=== PATIENT | female | born 1955 | race Caucasian/White ===

== ENCOUNTER 2024-04-20 00:30 | Inpatient (IN) | payer OTHER ==
[~2024-04-20] VITALS: Ht 152.4 cm; Wt 100.5 kg
[2024-04-20 00:55] VITALS: PULSE 111; RESP 21; O2SAT 94
[2024-04-20] MEDS: SODIUM CHLORIDE 0.9% 2,000 ML IV ONE (01:24)
[2024-04-20] MEDS: IBUPROFEN 800 MG TAB PO ONE (01:25)
[2024-04-20] MEDS: ACETAMINOPHEN 500 MG TAB PO ONE (01:26)
[2024-04-20 01:33] LABS: Basophils # (auto) 0 10 ^3/uL (0-0.2); Basophils % (auto) 0.3 % (0.0-2.0); Eosinophils # (auto) 0 10 ^3/uL (0-0.8); Eosinophils % (auto) 0.1 % (0.0-7.0); Hematocrit 40.6 % (36.0-46.0); Hemoglobin 13.7 g/dL (12.2-16.2); Lymphocytes # (auto) 1.1 10 ^3/uL (0.4-5.4); Mean Corpuscular Hemoglobin 29.9 pg (28.0-32.0); Mean Corpuscular Hgb Conc. 33.7 g/dL (32.0-36.0); Mean Corpuscular Volume 88.8 fL (80.0-100.0); Monocytes # (auto) 1.1 10 ^3/uL (0-1.3); Monocytes % (auto) 6.4 % (0.0-12.0); Neutrophils # (auto) 14.2 10 ^3/uL (1.6-8.6); Neutrophils % (auto) 86.2 % (37.0-80.0); Platelet Count (auto) 196 10^3/uL (140-450); Red Blood Cells 4.57 10^6/uL (4.0-5.20); Red Cell Distribution Width 13.9 % (11.8-14.3); White Blood Cell 16.4 10^3/uL (4.4-10.8)
[2024-04-20 01:44] LABS: Anion Gap 8 (5-15); Carbon Dioxide 24 mmol/L (20-31); Chloride 106 mmol/L (98-107); Potassium 3.3 mmol/L (3.5-5.1); Sodium 138 mmol/L (136-145)
[2024-04-20 01:50] LABS: BUN/Creatinine Ratio 10.8 (10.0-20.0); Blood Urea Nitrogen 9 mg/dL (9-23); Glucose 142 mg/dL (74-106)
--- NOTE | 2024-04-20 02:37 | ED.PDOC ---
History of Present Illness HPI Comments 68-year-old female brought in by EMS presents with a chief complaint of fever, dysuria, and headache. Patient states that she has been feeling unwell since beginning yesterday. Patient is mostly complaining of headache, but also states that she is having dysuria pain as well. Patient is febrile upon arrival to ER. Denies sore throat, cough, abd pain, diarrhea. Has had nausea/vomiting. No other symptoms or modifying factors present at this time. 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 Hx Family History Family History: Reviewed,noncontributory to illness Social History Smoker: Non-Smoker Alcohol: Denies ETOH Use Drugs: Denies Drug Use Lives In: Home Constitutional: reports: fever; denies: chills, diaphoresis, fatigue, malaise, sweats, weakness, others EENTM: denies: blurred vision, double vision, ear bleeding, ear discharge, ear drainage, ear pain, ear ringing, eye pain, eye redness, hearing loss, mouth pain, mouth swelling, nasal discharge, nose bleeding, nose congestion, nose pain, photophobia, tearing, throat pain, throat swelling, voice changes, others Respiratory: denies: cough, hemoptysis, orthopnea, SOB at rest, shortness of breath, SOB with excertion, stridor, wheezing, others Cardiovascular: denies: chest pain, dizzy spells, diaphoresis, Dyspnea on exertion, edema, irregular heart beat, left arm pain, lightheadedness, palpitations, PND, syncope, others Gastrointestinal: denies: abdomen distended, abdominal pain, blood streaked bowels, constipated, diarrhea, dysphagia, difficulty swallowing, hematemesis, melena, nausea, poor appetite, poor fluid intake, rectal bleeding, rectal pain, vomiting, others Genitourinary: reports: dysuria; denies: abnormal vagina bleeding, burning, dyspareunia, flank pain, frequency, hematuria, incontinence, pain, , vagina discharge, urgency, others Neurological: reports: headache; denies: dizziness, fainting, left sided numbness, left sided weakness, numbness, paresthesia, pre-existing deficit, right sided numbness, right sided weakness, seizure, speech problems, tingling, tremors, weakness, others Musculoskeletal: denies: back pain, gout, joint pain, joint swelling, muscle pain, muscle stiffness, neck pain, others Integumetry: denies: bruises, change in color, change in hair/nails, dryness, laceration, lesions, lumps, rash, wounds, others Allergic/Immunocompromised: denies: Difficulty Healing, Frequent Infections, Hives, Itching, others Hematologic/Lymphatic: denies: anemia, blood clots, easy bleeding, easy bruising, swollen glands, others Endocrine: denies: excessive hunger, excessive sweating, excessive thirst, excessive urination, flushing, intolerance to cold, intolerance to heat, unexplained weight gain, unexplained weight loss, others Psychiatric: denies: anxiety, bipolar disorder, depression, hopeless, panic disorder, schizophrenia, sleepless, suicidal, others All Other Systems: Reviewed and Negative Physical Exam General Appearance: No Apparent Distress, Obese HEENT: Normal ENT Inspection Neck: Full Range of Motion, Non-Tender, Normal Inspection, Supple Respiratory: Lungs Clear, No Accessory Muscle Use, No Respiratory Distress, Normal Breath Sounds Cardiovascular: No Edema, No JVD, Regular Rate/Rhythm Breast Exam: Deferred Gastrointestinal: Non Tender, Soft Genitalia: Deferred Pelvic: Deferred Rectal: Deferred Extremities: Normal inspection, Normal range of motion, Non-tender, No pedal edema Neurologic: Alert, No Motor Deficits, Normal Affect, Normal Mood, No Sensory Deficits Cerebellar Function: NOT DONE Reflexes: NOT DONE Skin: Dry, Normal Color, Warm Lymphatic: NOT DONE Was a procedure done? Was a procedure done?: No EKG EKG : Comments Sinus tach, rate 109, normal intervals, normal axis, normal QRS complex, no ST/T changes. Differential Dx Considerations may include: UTI, pyelonephritis, dehydration, electrolyte imbalance, sepsis, arrhythmia, pneumonia, viral syndrome, among others X-Ray, Labs, Meds, VS Vital Signs Date Time Temp Pulse Resp B/P (MAP) Pulse Ox O2 Delivery O2 Flow Rate FiO2 04/20/24 01:26 100.9 04/20/24 01:25 100.9 04/20/24 01:03 109 04/20/24 01:00 99.7 111 21 108/51 (70) 94 99.7 04/20/24 00:30 100.9 122 20 133/76 (95) 95 Lab Test 04/20/24 02:43 04/20/24 02:35 04/20/24 02:15 04/20/24 01:15 Range/Units Urine Color Pending Urine Clarity Pending Urine pH Pending Urine Specific [place] Pending Urine Protein Pending Urine Ketones Pending Urine Blood Pending Urine Nitrite Pending Urine Bilirubin Pending Urine Urobilinogen Pending Urine Leukocyte Esterase Pending Urine RBC Pending Urine WBC Pending Urine Squamous Epithelial Cells Pending Urine Bacteria Pending Urine Glucose Pending Influenza Type A Antigen Pending Influenza Type B Antigen Pending SARS-CoV-2 Antigen (Rapid) Pending Troponin I High Sensitivity 10 8 </=34 ng/L White Blood Count 16.4 H 4.4-10.8 10^3/uL Red Blood Count 4.57 4.0-5.20 10^6/uL Hemoglobin 13.7 12.2-16.2 g/dL Hematocrit 40.6 36.0-46.0 % Mean Corpuscular Volume 88.8 80.0-100.0 fL Mean Corpuscular Hemoglobin 29.9 28.0-32.0 pg Mean Corpuscular Hemoglobin Concent 33.7 32.0-36.0 g/dL Red Cell Distribution Width 13.9 11.8-14.3 % Platelet Count 196 140-450 10^3/uL Mean Platelet Volume 8.8 6.9-10.8 fL Neutrophils (%) (Auto) 86.2 H 37.0-80.0 % Lymphocytes (%) (Auto) 7.0 L 10.0-50.0 % Monocytes (%) (Auto) 6.4 0.0-12.0 % Eosinophils (%) (Auto) 0.1 0.0-7.0 % Basophils (%) (Auto) 0.3 0.0-2.0 % Neutrophils # (Auto) 14.2 H 1.6-8.6 10 ^3/uL Lymphocytes # (Auto) 1.1 0.4-5.4 10 ^3/uL Monocytes # (Auto) 1.1 0-1.3 10 ^3/uL Eosinophils # (Auto) 0 0-0.8 10 ^3/uL Basophils # (Auto) 0 0-0.2 10 ^3/uL Nucleated Red Blood Cells 0.0 % Sodium Level 138 136-145 mmol/L Potassium Level 3.3 L 3.5-5.1 mmol/L Chloride Level 106 98-107 mmol/L Carbon Dioxide Level 24 20-31 mmol/L Anion Gap 8 5-15 Blood Urea Nitrogen 9 9-23 mg/dL Creatinine 0.83 0.550-1.02 mg/dL Glomerular Filtration Rate Calc 78 >90 mL/min BUN/Creatinine Ratio 10.8 10.0-20.0 Serum Glucose 142 H 74-106 mg/dL Lactic Acid Level 1.2 0.4-2.0 mmol/L Calcium Level 9.0 8.7-10.4 mg/dL B-Type Natriuretic Peptide 31.51 0-100 pg/mL Current Medications Medications (Trade) Dose Ordered Sig/Yoly Route Start Time Stop Time Status Last Admin Sodium Chloride 2,000 ml @ 1,000 mls/hr Q2H ONCE IV 04/20/24 01:15 04/20/24 03:14 04/20/24 01:24 Acetaminophen (Tylenol Tablet) 1,000 mg ONCE ONCE PO 04/20/24 01:15 04/20/24 01:16 DC 04/20/24 01:26 Ibuprofen (Motrin Tablet) 800 mg ONCE ONCE PO 04/20/24 01:15 04/20/24 01:16 DC 04/20/24 01:25 X-Ray, Labs, Meds, VS Comment 68-year-old female with a history of hypertension and diabetes brought in by EMS for evaluation of headache, malaise, dysuria, nausea and vomiting Vitals remarkable for temperature 100.9, heart rate 122 Exam remarkable for tachycardia EKG sinus tach, no ST/T changes Chest x-ray independently interpreted by me: Cardiac silhouette appears enlarged, bilateral patchy increased interstitial markings, right greater than left which may represent infiltrates, no definite effusion, normal mediastinal width, grossly normal bony thorax, no free air, no pneumothorax. CBC remarkable for WBC 16.4, left shift Basic metabolic panel remarkable for potassium 3.3 Lactate, BNP and 2 serial troponins unremarkable for any abnormality of acute significance UA, influenza and COVID pending Patient treated with the following in the ED: 1 L 0.9 normal saline IV bolus, Levaquin 750 mg IV , Tylenol 1 g p.o., ibuprofen 800 mg p.o. On re-evaluation, patient states headache has improved, tachycardia has resolved, and other vitals are stable. Plan is to admit the patient for IV antibiotics. Time of 1ST Reevaluation: 02:56 Reevaluation 1ST: Unchanged Time of 2ND Reevaluation: 03:07 Reevaluation 2ND: Improved Patient Education/Counseling: Diagnosis, Treatment, Prognosis Family Education/Counseling: Diagnosis, Treatment, Prognosis Departure 1 Departure Time of Disposition: 03:07 Impression: Primary Impression: UTI (urinary tract infection) Qualified Codes: N39.0 - Urinary tract infection, site not specified Additional Impression: Pneumonia Qualified Codes: J18.9 - Pneumonia, unspecified organism Disposition: ADMITTED INPATIENT Admit to: Med Surg Condition: Guarded Critical Care Note Critical Care Time?: No Stability Stability form required: No Heart Score Heart Score: Heart Score Response (Comments) Value History N/A 0 EKG N/A 0 Age N/A 0 Risk Factors N/A 0 Troponin N/A 0 Total 0 I personally scribed for APPLE HERMAN MD ([email or web address]) on 04/20/24 at 02:37. Electronically submitted by Devang Tucker ([email or web address]). APPLE HERMAN MD Apr 20, 2024 02:37
[2024-04-20 03:04] LABS: Urine Bacteria MOD /hpf (None Seen); Urine Blood 2+ /uL (Negative); Urine Clarity Turbid (Clear); Urine Color Light-Orange (Yellow); Urine Protein, UAD 1+ (Negative); Urine Specific Gravity 1.015 (1.001-1.035); Urine Urobilinogen Normal (Negative); Urine WBC 524 /hpf (0 - 5); Urine WBC Clumps PRESENT /hpf (None Seen)
[2024-04-20 03:20] LABS: COVID19 ANTIGEN SOFIA FIA NEGATIVE (NEGATIVE); Rapid Influenza A Negative (Negative); Rapid Influenza B Negative (Negative)
[2024-04-20] MEDS: levoFLOXacin 750MG 150 ML IV ONE (03:35)
[2024-04-20] MEDS: POTASSIUM CHL 20 Meq TABLET PO ONE (03:43)
--- NOTE | 2024-04-20 04:03 | DVH ---
Examination: CXRP Clinical Indication: fever Comparison: None. Technique: Frontal radiograph of the chest was obtained. Findings: Limited evaluation, due to mid-expiratory radiograph. Lungs are clear and well expanded, with no pulmonary infiltrate or pleural effusion. There is no pneumothorax. Cardiac size cannot be commented upon, due to mid-expiratory phase of the radiograph. No acute osseous abnormality is seen. Impression: 1. Limited evaluation due to mid-expiratory radiograph. 2. No acute cardiopulmonary disease is seen. Electronically Signed 04/20/2024 03:54 Juan Luis Oliver
[2024-04-20] MEDS ORDERED: DEXTROSE (50%) 50ML SYRG IV PRN (06:15)
[2024-04-20] MEDS ORDERED: ONDANSETRON HCL 4 MG/2 ML VIAL IV PRN (06:15)
[2024-04-20] MEDS: InsuLIN REG 1unit/0.01ml Soln (100units/ml) SC SCH (06:49)
[2024-04-20] MEDS: ACCU-CHEK COMFORT CURVE STRIP VI SCH (06:49)
--- NOTE | 2024-04-20 06:56 | DVHHP2 ---
History of Present Illness Reason for Visit: Generalized weakness History of Present Illness 68-year-old female presents for evaluation of generalized weakness with associated dysuria and fever. Patient reports symptoms have been ongoing for the past two days. Denies abdominal pain or nausea. No cardiac or respiratory symptoms. Past Medical History Hypertension diabetes mellitus Past Surgical History Hernia repair Family History Noncontributory Smoke: No ALCOHOL: none Drugs: None Lives: with Family Review of Systems Review of Systems Review of systems are currently negative otherwise addressed in HPI. Allergies: Coded Allergies: Penicillins (Verified Allergy, Unknown, 04/20/24) Medications Current Medications Medications Dose Ordered Sig/Yoly Route Start Time Stop Time Status Last Admin Dose Admin Levofloxacin/ Dextrose 100 ml @ 100 mls/hr DAILY IV 04/21/24 10:00 Diagnostic Test (Pha) 1 strip ACHS 04/20/24 07:00 04/20/24 06:49 1 STRIP Insulin Human Regular ACHS SC 04/20/24 07:00 Dextrose 50 ml UD PRN IV 04/20/24 06:15 Ondansetron HCl 4 mg Q4HP PRN IV 04/20/24 06:15 Acetaminophen 650 mg Q6HP PRN PO 04/20/24 06:15 Exam Vital Signs Vital Signs Date Time Temp Pulse Resp B/P (MAP) Pulse Ox O2 Delivery O2 Flow Rate FiO2 04/20/24 06:00 72 15 91/44 (60) 96 04/20/24 03:00 98.3 04/20/24 00:55 Room Air* 0 21 Exam Gen: 68-year-old female in mild distress Skin: Warm, dry, normal color and texture, no rash. HEENT: Normocephalic atraumatic, mucous membranes moist and pink. Neck: Cervical and supraclavicular nodes normal without enlargement, trachea is midline, thyroid gland is normal without masses. Pulmonary: Clear to auscultation and percussion bilaterally. Cardiac: Regular rate and rhythm. No murmur Abdomen: Soft, nontender, nondistended, bowel sounds present all 4 quadrants, no guarding, no rigidity, no organomegaly. Extremities: No cyanosis, clubbing, no edema Neuro: Cranial nerves II through XII grossly intact, normal affect and speech, no focal motor deficits. Labs/Xrays ORDERING PHYSICIAN: APPLE HERMAN MD PROCEDURE(s): CXRP - CHEST PORTABLE REASON: fever ORDER NUMBER(s): [id number], ACCESSION NUMBER(s): [id number] Examination: CXRP Clinical Indication: fever Comparison: None. Technique: Frontal radiograph of the chest was obtained. Findings: Limited evaluation, due to mid-expiratory radiograph. Lungs are clear and well expanded, with no pulmonary infiltrate or pleural effusion. There is no pneumothorax. Cardiac size cannot be commented upon, due to mid-expiratory phase of the radiograph. No acute osseous abnormality is seen. Impression: 1. Limited evaluation due to mid-expiratory radiograph. 2. No acute cardiopulmonary disease is seen. Electronically Signed 04/20/2024 03:54 Juan Luis Oliver Labs Test 04/20/24 04:45 04/20/24 02:43 04/20/24 02:35 04/20/24 01:15 Range/Units Troponin I High Sensitivity 10 </=34 ng/L Urine Color Light-orange Yellow Urine Clarity Turbid H Clear Urine pH 6.0 5.0-9.0 Urine Specific [place] 1.015 1.001-1.035 Urine Protein 1+ H Negative Urine Ketones 1+ H Negative Urine Blood 2+ H Negative /uL Urine Nitrite 2+ H Negative Urine Bilirubin Negative Negative Urine Urobilinogen Normal Negative mg/dL Urine Leukocyte Esterase 3+ Negative /uL Urine RBC 11 0 - 4 /hpf Urine WBC 524 0 - 5 /hpf Urine WBC Clumps Present None Seen /hpf Urine Squamous Epithelial Cells Few <5 /hpf Urine Bacteria Mod H None Seen /hpf Urine Glucose Normal Normal mg/dL Influenza Type A Antigen Negative Negative Influenza Type B Antigen Negative Negative SARS-CoV-2 Antigen (Rapid) Negative NEGATIVE White Blood Count 16.4 H 4.4-10.8 10^3/uL Red Blood Count 4.57 4.0-5.20 10^6/uL Hemoglobin 13.7 12.2-16.2 g/dL Hematocrit 40.6 36.0-46.0 % Mean Corpuscular Volume 88.8 80.0-100.0 fL Mean Corpuscular Hemoglobin 29.9 28.0-32.0 pg Mean Corpuscular Hemoglobin Concent 33.7 32.0-36.0 g/dL Red Cell Distribution Width 13.9 11.8-14.3 % Platelet Count 196 140-450 10^3/uL Mean Platelet Volume 8.8 6.9-10.8 fL Neutrophils (%) (Auto) 86.2 H 37.0-80.0 % Lymphocytes (%) (Auto) 7.0 L 10.0-50.0 % Monocytes (%) (Auto) 6.4 0.0-12.0 % Eosinophils (%) (Auto) 0.1 0.0-7.0 % Basophils (%) (Auto) 0.3 0.0-2.0 % Neutrophils # (Auto) 14.2 H 1.6-8.6 10 ^3/uL Lymphocytes # (Auto) 1.1 0.4-5.4 10 ^3/uL Monocytes # (Auto) 1.1 0-1.3 10 ^3/uL Eosinophils # (Auto) 0 0-0.8 10 ^3/uL Basophils # (Auto) 0 0-0.2 10 ^3/uL Nucleated Red Blood Cells 0.0 % Sodium Level 138 136-145 mmol/L Potassium Level 3.3 L 3.5-5.1 mmol/L Chloride Level 106 98-107 mmol/L Carbon Dioxide Level 24 20-31 mmol/L Anion Gap 8 5-15 Blood Urea Nitrogen 9 9-23 mg/dL Creatinine 0.83 0.550-1.02 mg/dL Glomerular Filtration Rate Calc 78 >90 mL/min BUN/Creatinine Ratio 10.8 10.0-20.0 Serum Glucose 142 H 74-106 mg/dL Lactic Acid Level 1.2 0.4-2.0 mmol/L Calcium Level 9.0 8.7-10.4 mg/dL B-Type Natriuretic Peptide 31.51 0-100 pg/mL Assessment/Plan Assessment/Plan Assessment Acute cystitis Diabetes mellitus Hypokalemia Sirs Plan S Admit the patient to [facility] to the hospitalist [place] Resume home medications Replete electrolytes Continue treatment per orders. Plan discussed with: Patient [facility] Procedure Category Date Status Time Consistent DIET 04/20/24 Transmitted Carb(Ccho)Diabetes Breakfast Urine Bacterial ISABELA 04/20/24 In Process Culture 06:06 Glucose Blood PHA 04/20/24 In Process (Accu-Chek Comfort 07:00 Insulin R (Human) PHA 04/20/24 In Process (Insulin R) 07:00 Dextrose 50% Syringe PHA 04/20/24 In Process 06:15 Admit ADMIT 04/20/24 Transmitted 06:06 Ondansetron Hcl PHA 04/20/24 In Process (Zofran) 06:15 Complete Blood Count LAB 04/21/24 Verified 04:00 Cardiac DIET 04/20/24 Transmitted Diet-2gna,Lofat,Lochol Breakfast Condition: Stable RONNY 04/20/24 In Process 06:06 Acetaminophen Tablet PHA 04/20/24 In Process (Tylenol Tablet) 06:15 Bedrest With Bathroom [facility] 04/20/24 In Process Privileg 06:06 Basic Metabolic Panel LAB 04/21/24 Verified 04:00 Levofloxacin 500mg PHA 04/21/24 In Process (Levaquin 500mg/ 100m 10:00 Albumin 5% (Albutein) PHA 04/20/24 Logged 07:00 Date of Service: Apr 20, 2024 Billing Provider: FELICITA ESTES Common Visit Codes: [id number] INP/OBS CARE (MOD) FELICITA ESTES Apr 20, 2024 06:56
[2024-04-20] MEDS: ALBUMIN 5% 250 ML IV ONE (07:08)
--- NOTE | 2024-04-20 08:16 | ECG ---
[facility] Test Date: 2024-04-20 Test Time: 01:03:27 Pat Name: BROCK ZELAYA Department: ED Room: 0276 Gender: F Etl Software Engineer: : [id number] Requested By: APPLE HERNANDEZ Order Number: [id number] Reading MD: Zane Victor Measurements Intervals [place] Rate: 109 P: 11 NV: 136 QRS: 40 QRSD: 94 T: 14 QT: 343 QTc: 463 Interpretive Statements Sinus tachycardia Electronically Signed On 04-30-2024 12:46:20 PST by Zane Victor Please click the below link to view image of tracing.
[2024-04-20 09:56] VITALS: PULSE 72; RESP 22; O2SAT 97
[2024-04-20] MEDS ORDERED: LOSA-534 PO (10:47)
[2024-04-20] MEDS ORDERED: METF-370 PO (10:47)
[2024-04-20] MEDS ORDERED: SEMA2INJ3 SC (10:47)
[2024-04-20] MEDS: ACETAMINOPHEN 325 MG TAB PO PRN (11:38)
[2024-04-20 12:42] VITALS: BP 115/97; PULSE 92; RESP 18; TEMP 100.1; O2SAT 94
--- NOTE | 2024-04-20 13:56 | DVHPN2 ---
Subjective Patient continues to report having generalized weakness, fevers Reviewed: Care Plan, H&P, Labs, Medications Changes from previous H/P or p: No Changes General: Per HPI Objective Vitals Vital Signs Date Time Temp Pulse Resp B/P (MAP) Pulse Ox O2 Delivery O2 Flow Rate FiO2 04/20/24 12:42 100.1 92 18 115/97 (103) 94 100.1 04/20/24 09:56 Room Air* 0 21 Intake/Output Intake and Output 04/20/24 07:00 Intake Total 1150 ml Balance 1150 ml Intake IV Total 1150 ml General Appearance: Alert, Oriented X3, Cooperative, No acute distress HEENT: Atraumatic, PERRLA Cardiovascular: Normal S1, Normal S2 Genitourinary: No Apparent Abnormalities Musculoskeletal: Normal sensory function, Normal motor function Neuro: Normal gait, Normal speech, Strength at 5/5 X4 ext Skin: Dry, Intact Psych/Mental Status: Mental status NL, Mood NL Medications Current Medications Medications Dose Ordered Sig/Yoly Route Start Time Stop Time Status Last Admin Dose Admin Levofloxacin/ Dextrose 100 ml @ 100 mls/hr DAILY IV 04/21/24 10:00 Diagnostic Test (Pha) 1 strip ACHS 04/20/24 07:00 04/20/24 06:49 1 STRIP Insulin Human Regular ACHS SC 04/20/24 07:00 Dextrose 50 ml UD PRN IV 04/20/24 06:15 Ondansetron HCl 4 mg Q4HP PRN IV 04/20/24 06:15 Acetaminophen 650 mg Q6HP PRN PO 04/20/24 06:15 04/20/24 11:38 650 MG Laboratory Results Laboratory Tests 04/20/24 01:15 Chemistry Test 04/20/24 01:15 Calcium Level 9.0 mg/dL (8.7-10.4) Cardiac Markers Test 04/20/24 01:15 B-Type Natriuretic Peptide 31.51 pg/mL (0-100) Urinalysis Test 04/20/24 02:43 Urine Color Light-orange (Yellow) Urine Clarity Turbid (Clear) H Urine pH 6.0 (5.0-9.0) Urine Specific [place] 1.015 (1.001-1.035) Urine Protein 1+ (Negative) H Urine Ketones 1+ (Negative) H Urine Blood 2+ /uL (Negative) H Urine Nitrite 2+ (Negative) H Urine Bilirubin Negative (Negative) Urine Urobilinogen Normal mg/dL (Negative) Urine Leukocyte Esterase 3+ /uL (Negative) Urine RBC 11 /hpf (0 - 4) Urine WBC 524 /hpf (0 - 5) Urine WBC Clumps Present /hpf (None Seen) Urine Squamous Epithelial Cells Few /hpf (<5) Urine Bacteria Mod /hpf (None Seen) H Urine Glucose Normal mg/dL (Normal) Labs and/or images reviewed: Labs reviewed by me, Image(s) reviewed by me Assessment/Plan Assessment/Plan Impression: -sepsis -complicated cystitis -obesity -rule out nephrolithiasis -diabetes mellitus -primary hypertension Plan: -renal ultrasound -antibiotic therapy: Levaquin -regular insulin sliding scale -check A1c -hold antihypertensives given borderline blood pressure -continue IV hydration -repeat labs in a.m. Total time spent with patient discussing and formulating plan of care: 35 minutes. This medical document was created using an electronic medical record system with [employer] dictation system. Although this document has been carefully reviewed, there may still be some phonetic and typographical errors. These areas are purely typographical due to imperfections of the software programs, and do not reflect any compromise in the patient's medical care. Plan discussed with: Patient, Son, Other (RN) My Orders Orders - CHASTITY PAYNE NP Procedure Category Date Status Time Kidney US 04/20/24 Verified 13:52 NS PHA 04/20/24 Verified 14:00 Blood Culture ISABELA 04/20/24 Verified 13:52 Hemoglobin A1c LAB 04/21/24 Verified 04:00 Date of Service: Apr 20, 2024 Billing Provider: CHASTITY PAYNE NP Common Visit Codes: [id number] INP/OBS CARE(HIGH) CHASTITY PAYNE NP Apr 20, 2024 13:56
--- NOTE | 2024-04-20 14:47 | DVH ---
INDICATION: 68 years old, Female; Rule out nephrolithiasis. Complicated cystitis with sepsis. TECHNIQUE: Multiple real-time sonographic images of the kidneys and bladder were obtained. COMPARISON: None FINDINGS: The right kidney measures 13 cm in length, which is normal in size. There is normal echogenicity of t he right kidney. No hydronephrosis. The left kidney measures 11 cm in length, which is normal in size. There is normal echogenicity of th e left kidney. No hydronephrosis. No large intraluminal masses are seen in the bladder. IMPRESSION: 1. Normal sonographic appearance of the kidneys. No hydronephrosis.
[2024-04-20 16:56] VITALS: BP 107/59; PULSE 112; RESP 17; TEMP 99.2; O2SAT 97
[2024-04-20] MEDS: INFLUENZA TRIVALENT 2024-2025 0.5 ML INJ IM ONE (17:52)
[2024-04-20 20:00] VITALS: O2SAT 97
[2024-04-20 21:00] VITALS: BP 82/30; PULSE 78; RESP 17; TEMP 98.3; O2SAT 100
[2024-04-20] MEDS: SODIUM CHLORIDE 0.9% 1,000 ML IV ONE (22:40)
[2024-04-21] VITALS (8 sets, daily range): BP systolic 78–123; BP diastolic 39–64; PULSE 66–93; RESP 16–19; TEMP 97.9–99.9; O2SAT 94–99
[2024-04-21 06:41] LABS: Basophils # (auto) 0 10 ^3/uL (0-0.2); Basophils % (auto) 0.1 % (0.0-2.0); Chloride 112 mmol/L (98-107); Eosinophils # (auto) 0 10 ^3/uL (0-0.8); Eosinophils % (auto) 0.2 % (0.0-7.0); Hematocrit 35.7 % (36.0-46.0); Hemoglobin 11.6 g/dL (12.2-16.2); Lymphocytes # (auto) 1.9 10 ^3/uL (0.4-5.4); Lymphocytes % (auto) 12.7 % (10.0-50.0); Mean Corpuscular Hemoglobin 29.2 pg (28.0-32.0); Mean Corpuscular Hgb Conc. 32.4 g/dL (32.0-36.0); Mean Corpuscular Volume 90.2 fL (80.0-100.0); Monocytes % (auto) 6.9 % (0.0-12.0); Neutrophils # (auto) 12.1 10 ^3/uL (1.6-8.6); Neutrophils % (auto) 80.1 % (37.0-80.0); Platelet Count (auto) 146 10^3/uL (140-450); Potassium 3.9 mmol/L (3.5-5.1); Red Blood Cells 3.95 10^6/uL (4.0-5.20); Red Cell Distribution Width 14.2 % (11.8-14.3); Sodium 141 mmol/L (136-145); White Blood Cell 15.2 10^3/uL (4.4-10.8)
[2024-04-21 06:42] LABS: Anion Gap 5 (5-15); Carbon Dioxide 24 mmol/L (20-31)
[2024-04-21 06:43] LABS: Calcium 8.4 mg/dL (8.7-10.4)
[2024-04-21 06:48] LABS: BUN/Creatinine Ratio 14.1 (10.0-20.0); Blood Urea Nitrogen 11 mg/dL (9-23); Glucose 79 mg/dL (74-106)
[2024-04-21] MEDS: SODIUM CHLORIDE 0.9% 1,000 ML IV ONE (08:39)
[2024-04-21] MEDS: levoFLOXacin 500MG 100 ML IV SCH (09:24)
[2024-04-21] MEDS: PNEUMOCOCCAL VACC POLYS 25 MCG/0.5 ML VIAL IM ONE (09:32)
[2024-04-21] MEDS: SODIUM CHLORIDE 0.9% 1,000 ML IV SCH (09:47)
--- NOTE | 2024-04-21 13:51 | DVHPN2 ---
Subjective States that she feels little bit better than yesterday Reviewed: Care Plan, H&P, Labs, Medications Changes from previous H/P or p: Changes General: Per HPI Objective Vitals Vital Signs Date Time Temp Pulse Resp B/P (MAP) Pulse Ox O2 Delivery O2 Flow Rate FiO2 04/21/24 12:37 98.0 80 18 99/56 (70) 97 98.0 04/21/24 08:00 Room Air* 0 21 Intake/Output Intake and Output 04/21/24 07:00 Intake Total 420 ml Balance 420 ml Intake Oral 420 ml # Voids 2 General Appearance: Alert, Oriented X3, Cooperative, No acute distress HEENT: Atraumatic, PERRLA Cardiovascular: Normal S1, Normal S2 Genitourinary: No Apparent Abnormalities Musculoskeletal: Normal sensory function, Normal motor function Neuro: Normal gait, Normal speech, Strength at 5/5 X4 ext Skin: Dry, Intact Psych/Mental Status: Mental status NL, Mood NL Medications Current Medications Medications Dose Ordered Sig/Yoly Route Start Time Stop Time Status Last Admin Dose Admin Levofloxacin/ Dextrose 100 ml @ 100 mls/hr DAILY IV 04/21/24 10:00 04/21/24 09:24 100 MLS/HR Diagnostic Test (Pha) 1 strip ACHS 04/20/24 07:00 04/21/24 06:01 1 STRIP Insulin Human Regular ACHS SC 04/20/24 07:00 04/20/24 22:55 2 UNITS Dextrose 50 ml UD PRN IV 04/20/24 06:15 Ondansetron HCl 4 mg Q4HP PRN IV 04/20/24 06:15 Acetaminophen 650 mg Q6HP PRN PO 04/20/24 06:15 04/21/24 09:33 650 MG Sodium Chloride 1,000 ml @ 100 mls/hr Q10H IV 04/21/24 09:15 04/21/24 09:47 100 MLS/HR Laboratory Results Laboratory Tests 04/21/24 05:35 Chemistry Test 04/21/24 05:35 Calcium Level 8.4 mg/dL (8.7-10.4) L HgA1c, TSH Test 04/21/24 05:35 Hemoglobin A1c 6.4 % A1C (<5.7) H Urinalysis Test 04/20/24 02:43 Urine Color Light-orange (Yellow) Urine Clarity Turbid (Clear) H Urine pH 6.0 (5.0-9.0) Urine Specific [place] 1.015 (1.001-1.035) Urine Protein 1+ (Negative) H Urine Ketones 1+ (Negative) H Urine Blood 2+ /uL (Negative) H Urine Nitrite 2+ (Negative) H Urine Bilirubin Negative (Negative) Urine Urobilinogen Normal mg/dL (Negative) Urine Leukocyte Esterase 3+ /uL (Negative) Urine RBC 11 /hpf (0 - 4) Urine WBC 524 /hpf (0 - 5) Urine WBC Clumps Present /hpf (None Seen) Urine Squamous Epithelial Cells Few /hpf (<5) Urine Bacteria Mod /hpf (None Seen) H Urine Glucose Normal mg/dL (Normal) Labs and/or images reviewed: Labs reviewed by me, Image(s) reviewed by me Assessment/Plan Assessment/Plan Impression: -sepsis -complicated cystitis -obesity -rule out nephrolithiasis -diabetes mellitus -primary hypertension Plan: Events: Patient states that her symptoms have improved. Leukocytosis improving. Patient afebrile. Noted hypotension last night with volume resuscitation and improvement with hemodynamics. -renal ultrasound: Unremarkable -antibiotic therapy: Levaquin -regular insulin sliding scale -check A1c -hold antihypertensives given borderline blood pressure -continue IV hydration -repeat labs in a.m. -reassess for discharge in a.m.. Total time spent with patient discussing and formulating plan of care: 35 minutes. This medical document was created using an electronic medical record system with [employer] dictation system. Although this document has been carefully reviewed, there may still be some phonetic and typographical errors. These areas are purely typographical due to imperfections of the software programs, and do not reflect any compromise in the patient's medical care. Plan discussed with: Patient, Other (RN) My Orders Orders - CHASTITY PAYNE NP Procedure Category Date Status Time Kidney US 04/20/24 Resulted 13:52 Blood Culture ISABELA 04/20/24 In Process 13:52 Sodium Chloride 0.9% PHA 04/21/24 In Process 09:15 Complete Blood Count LAB 04/22/24 Verified 04:00 Date of Service: Apr 21, 2024 Billing Provider: CHASTITY PAYNE NP Common Visit Codes: [id number] INP/OBS CARE(HIGH) CHASTITY PAYNE NP Apr 21, 2024 13:51
[2024-04-22 01:00] VITALS: BP 121/56; PULSE 95; RESP 17; TEMP 99.8; O2SAT 92
[2024-04-22 05:00] VITALS: BP 132/71; PULSE 91; RESP 17; TEMP 98.6; O2SAT 93
[2024-04-22 05:27] LABS: Basophils # (auto) 0 10 ^3/uL (0-0.2); Basophils % (auto) 0.4 % (0.0-2.0); Eosinophils # (auto) 0 10 ^3/uL (0-0.8); Eosinophils % (auto) 0.4 % (0.0-7.0); Lymphocytes # (auto) 2.1 10 ^3/uL (0.4-5.4); Lymphocytes % (auto) 18.1 % (10.0-50.0); Mean Corpuscular Hemoglobin 29.6 pg (28.0-32.0); Mean Corpuscular Hgb Conc. 33.3 g/dL (32.0-36.0); Mean Corpuscular Volume 88.7 fL (80.0-100.0); Monocytes # (auto) 0.8 10 ^3/uL (0-1.3); Monocytes % (auto) 7.4 % (0.0-12.0); Neutrophils # (auto) 8.4 10 ^3/uL (1.6-8.6); Neutrophils % (auto) 73.7 % (37.0-80.0); Nucleated Red Blood Cells % 0.1 %; Platelet Count (auto) 164 10^3/uL (140-450); Red Blood Cells 4.06 10^6/uL (4.0-5.20); White Blood Cell 11.4 10^3/uL (4.4-10.8)
[2024-04-22 08:00] VITALS: RESP 16
[2024-04-22 09:00] VITALS: BP 149/81; PULSE 80; RESP 18; TEMP 97.6; O2SAT 97
[2024-04-22] MEDS ORDERED: LEVO500T91 PO (11:47)
--- NOTE | 2024-04-22 13:35 | DVHDS2 ---
Discharge Summary Date of Admission Apr 20, 2024 at 06:10 Date of Discharge: Apr 22, 2024 Admitting Diagnosis Acute cystitis Labs/Diagnostic Data: Laboratory Results Test 04/22/24 11:02 04/22/24 05:04 04/21/24 05:35 04/20/24 04:45 POC Glucose 100 mg/dl (70-106) White Blood Count 11.4 10^3/uL (4.4-10.8) Red Blood Count 4.06 10^6/uL (4.0-5.20) Hemoglobin 12.0 g/dL (12.2-16.2) Hematocrit 36.0 % (36.0-46.0) Mean Corpuscular Volume 88.7 fL (80.0-100.0) Mean Corpuscular Hemoglobin 29.6 pg (28.0-32.0) Mean Corpuscular Hemoglobin Concent 33.3 g/dL (32.0-36.0) Red Cell Distribution Width 14.0 % (11.8-14.3) Platelet Count 164 10^3/uL (140-450) Mean Platelet Volume 9.0 fL (6.9-10.8) Neutrophils (%) (Auto) 73.7 % (37.0-80.0) Lymphocytes (%) (Auto) 18.1 % (10.0-50.0) Monocytes (%) (Auto) 7.4 % (0.0-12.0) Eosinophils (%) (Auto) 0.4 % (0.0-7.0) Basophils (%) (Auto) 0.4 % (0.0-2.0) Neutrophils # (Auto) 8.4 10 ^3/uL (1.6-8.6) Lymphocytes # (Auto) 2.1 10 ^3/uL (0.4-5.4) Monocytes # (Auto) 0.8 10 ^3/uL (0-1.3) Eosinophils # (Auto) 0 10 ^3/uL (0-0.8) Basophils # (Auto) 0 10 ^3/uL (0-0.2) Nucleated Red Blood Cells 0.1 % Sodium Level 141 mmol/L (136-145) Potassium Level 3.9 mmol/L (3.5-5.1) Chloride Level 112 mmol/L (98-107) Carbon Dioxide Level 24 mmol/L (20-31) Anion Gap 5 (5-15) Blood Urea Nitrogen 11 mg/dL (9-23) Creatinine 0.78 mg/dL (0.550-1.02) Glomerular Filtration Rate Calc 84 mL/min (>90) BUN/Creatinine Ratio 14.1 (10.0-20.0) Serum Glucose 79 mg/dL (74-106) Hemoglobin A1c 6.4 % A1C (<5.7) Calcium Level 8.4 mg/dL (8.7-10.4) Troponin I High Sensitivity 10 ng/L (</=34) Test 04/20/24 02:43 04/20/24 02:35 04/20/24 01:15 Urine Color Light-orange (Yellow) Urine Clarity Turbid (Clear) Urine pH 6.0 (5.0-9.0) Urine Specific [place] 1.015 (1.001-1.035) Urine Protein 1+ (Negative) Urine Ketones 1+ (Negative) Urine Blood 2+ /uL (Negative) Urine Nitrite 2+ (Negative) Urine Bilirubin Negative (Negative) Urine Urobilinogen Normal mg/dL (Negative) Urine Leukocyte Esterase 3+ /uL (Negative) Urine RBC 11 /hpf (0 - 4) Urine WBC 524 /hpf (0 - 5) Urine WBC Clumps Present /hpf (None Seen) Urine Squamous Epithelial Cells Few /hpf (<5) Urine Bacteria Mod /hpf (None Seen) Urine Glucose Normal mg/dL (Normal) Influenza Type A Antigen Negative (Negative) Influenza Type B Antigen Negative (Negative) SARS-CoV-2 Antigen (Rapid) Negative (NEGATIVE) Lactic Acid Level 1.2 mmol/L (0.4-2.0) B-Type Natriuretic Peptide 31.51 pg/mL (0-100) Other Laboratory Tests 04/22/24 05:04 04/21/24 05:35 Brief Hx & Hospital Course: History of Present Illness 68-year-old female presents for evaluation of generalized weakness with associated dysuria and fever. Patient reports symptoms have been ongoing for the past two days. Denies abdominal pain or nausea. No cardiac or respiratory symptoms. Course of hospitalization: Patient was started on IV Levaquin. Patient was found to have periods of hypotension while hospitalized, resolved with IV volume resuscitation. The patient's white blood cell count has improved. The patient also has decreased episodes of being febrile. Patient states that she clinically feels better. Patient had ultrasound of her kidneys which was unremarkable. Urine culture found to be contaminated. Patient is agreeable to be discharged home today after being found without any orthostatic hypotension. She will follow up with her PCP in [place], Dr. Blood. She will be continued on Levaquin p.o. for an additional seven days. She was agreeable with discharge plan. All questions answered. Physical examination General: Alert and Oriented x3. No acute distress. Well-nourished. Obese Eyes: EOMI. Anicteric. HENT: Moist mucous membranes. Lungs: Clear to auscultation bilaterally. No accessory muscle use. Cardiovascular: Regular rate and rhythm. No murmur. No JVD. Abdomen: Soft, non-tender and non-distended. No palpable masses. Extremities: No edema. Non-tender. Skin: No rashes or lesions. Warm. Neurologic: No focal neurological deficits. CN II-XII grossly intact, but not individually tested. Psychiatric: Cooperative. Appropriate mood and affect. Total time spent with patient discussing and formulating plan of care: 35 minutes. This medical document was created using an electronic medical record system with [employer] dictation system. Although this document has been carefully reviewed, there may still be some phonetic and typographical errors. These areas are purely typographical due to imperfections of the software programs, and do not reflect any compromise in the patient's medical care. Condition at Discharge: Fair Final Diagnosis/Problems List Sepsis Secondary Diagnosis: -sepsis with shock, secondary to complicated cystitis -complicated cystitis -obesity -rule out nephrolithiasis -diabetes mellitus -primary hypertension Discharge Disposition: Home Discharge Instruct/Medications Diet: Consistent carbohydrate Activity: No Restrictions, As Tolerated Follow Up/Referral: Follow up with PCP, Dr. Blood in 1-2 weeks Medications: Continue all previous home medications. Patient was instructed to hold losartan for an additional day. -Levaquin 500 mg p.o. daily x7 days 36 Discharge Statement: "Patient was advised to return to the ER or call 911 if any headaches, dizziness, shortness of breath, chest pain, abdominal pain, bleeding, fevers, or worsening of medical condition. Patient was counseled about treatment plan, medications, possible side effects, patientverbalized understanding. All questions were answered to the best of my ability. This discharge took greater then 30 minutes in planning, reviewing documentation, counseling the patient, and discussing with other team members." ASSESSMENT ASSESSMENT Assessment Sepsis Date of Service: Apr 22, 2024 Billing Provider: CHASTITY PAYNE NP Common Visit Codes: [id number] DISCH DAY >30min CHASTITY PAYNE NP Apr 22, 2024 13:35
== END 2024-04-22 13:05 | disposition home or self-care (01) | DRG 871 ==
LOC: ER 00:30 → EDBD 00:30 → OVERFLOW 06:10 → WEST WING 09:45
PROVIDERS: ADMIT Nurse Practitioner; ATTEND Nurse Practitioner Acute Care
DX: A41.9 Sepsis, unspecified organism (principal); R65.21 Severe sepsis with septic shock; N30.00 Acute cystitis without hematuria; Z68.41 Body mass index [BMI] 40.0-44.9, adult; E11.9 Type 2 diabetes mellitus without complications; E87.6 Hypokalemia; Z20.822 Contact with and (suspected) exposure to COVID-19; E66.9 Obesity, unspecified; I10 Essential (primary) hypertension; Z88.0 Allergy status to penicillin; N20.0 Calculus of kidney; Z79.4 Long term (current) use of insulin; Z79.899 Other long term (current) drug therapy
CPT/HCPCS: 36415; 71045; 76775; 80048; 81001; 82962; 83036; 83605; 83880; 84484; 85025; 87040; 87086; 87426; 87804; 90656; 93005; 96361; 96365; 96366; 96367; G0378; J1815; J1956